=== PATIENT | male | born 1965 | race Caucasian/White ===

== ENCOUNTER → 2023-06-13 09:29 | Outpatient (BNVA) | payer BC, SELFPAY | PROVIDERS: Family Provider Family Medicine; PCP Family Medicine; Referring Provider Nurse Practitioner Family; Visit Provider Podiatrist Foot & Ankle Surgery | DX: M79.672 Pain in left foot (principal) | CPT/HCPCS: 73630 ==

== ENCOUNTER 2025-10-06 09:41 | Outpatient (CLI) | payer BC, SELFPAY ==
--- NOTE | 2025-10-06 09:46 | XRR_ITS ---
PROCEDURE INFORMATION: Exam: XR Complete Acute Abdomen Series Including Chest Exam date and time: 10/06/2025 9:52 AM Age: 60 years old Clinical indication: Abdominal pain; Generalized; Prior surgery; Surgery date: 6+ months; Surgery type: Lumbar; PT states abd. Pain on lt side & nausea x one week. ; Additional info: Upper lower quadrant abd pain TECHNIQUE: Imaging protocol: Radiologic exam. Complete acute abdomen series, including 2 or more views of the abdomen and a single view chest. COMPARISON: No relevant prior studies available. FINDINGS: Lungs: Clear lungs. Pleural spaces: No pneumothorax or pleural effusion. Heart/Mediastinum: Heart size is normal. Gastrointestinal tract: Nonobstructive bowel gas pattern. Intraperitoneal space: No evidence of intraperitoneal free air. Bones/joints: Posterior thoracolumbar spinal fusion hardware. Soft tissues: Unremarkable. XR/XR acute abdomen series [id number] IMPRESSION: No acute findings.
== END 2025-10-06 09:42 | disposition home or self-care (01) ==
LOC: RAD 09:43
PROVIDERS: Family Provider Family Medicine; PCP Family Medicine; Visit Provider Nurse Practitioner Adult Health
DX: R10.32 Left lower quadrant pain (principal); R10.11 Right upper quadrant pain; R10.12 Left upper quadrant pain; Z98.890 Other specified postprocedural states
CPT/HCPCS: 74022